=== PATIENT | male | born 1945 | race Caucasian/White ===

== ENCOUNTER 2024-10-27 16:22 | Emergency (ER) | payer MEDICARE ==
[2024-10-27] MEDS ORDERED: cefTRIAXone 1 GM Vial IM ONE (16:51)
[2024-10-27 16:52] VITALS: BP 170/79; PULSE 64
[2024-10-27] MEDS: Diphtheria,Pertussis(Acell),Tetanus Vaccine 0.5 ML Syringe IM ONE (17:26)
[2024-10-27] MEDS: cefTRIAXone 1 GM, Lidocaine 1% 2.1 ML IM ONE (17:26)
== END 2024-10-27 18:00 ==
LOC: JD.ED 16:22
DX: S68.122A Partial traumatic metacarpophalangeal amputation of right middle finger, initial encounter (principal); Z79.82 Long term (current) use of aspirin; Z79.899 Other long term (current) drug therapy; W27.8XXA Contact with other nonpowered hand tool, initial encounter
CPT/HCPCS: 73140; 90471; 90715; 96372; 99284; J0696; J2003